=== PATIENT | male | born 1980 | race American Indian/Alaskan Native ===

== ENCOUNTER 2024-11-03 18:26 | Emergency (ER) | payer MEDICAID, SELFPAY ==
[2024-11-03 18:39] VITALS: BMI 35.2
[2024-11-03 18:42] VITALS: BP 126/90; PULSE 110; RESP 19; TEMP 37.3; O2SAT 98
--- NOTE | 2024-11-03 19:01 | EDNOTE_ITS ---
ED Medical Clearance RME/HPI General Chief complaint: Medical Clearance Stated complaint: MEDICAL CLEARANCE Time Seen by Provider: 11/03/24 19:00 Arrival date/time: 11/03/24 18:26 RME / HPI RME / HPI Narrative: 44-year-old male presents to the ED in police custody. Patient here for medical clearance because his blood pressure was high at prison intake. His blood pressure now is 126/90. He does not have any chest pain or headache. No complaints. Related Information Home Medications ?Medication ?Instructions ?Recorded ?Confirmed No Known Home Medications 04/26/2304/03 Allergies Allergy/AdvReac Type Severity Reaction Status Date / Time red dye Allergy Intermediate RASH Verified 04/26/23 22:38 Review of Systems Review of Systems Systems Reviewed: All systems reviewed, normal except as documented Past Medical History Past Medical History CARDIAC: Negative Congestive Heart Failure RESPIRATORY: Negative Chronic Obstructive Pulmonary Disease (COPD) GENITOURINARY: Negative Renal Disease ENDOCRINE: Negative Diabetes Mellitus Type 1 or Diabetes Mellitus Type 2 Social History SMOKING STATUS: Current every day smoker SUBSTANCE USE: does not use ALCOHOL: Current ED Exam Narrative Physical exam: Constitutional: no acute distress, age appropriate, non-toxic Eyes: PERRL, conjunctivae w/o pallor, EOMI HENT: normocephalic, atraumatic. Oral mucosa moist Respiratory Effort: no stridor, effort normal, no retractions Musculoskeletal: no deformities, no swelling, no LE edema Skin: warm, dry; No rash Neurology: alert, oriented X 4. Normal gait. Moves all extremities spontaneously. Psychology: cooperative, normal mood Course Quality Measures none Vital Signs Vital signs: Vital Signs Temperature 99.2 F 11/03/24 18:42 Pulse Rate 110 H 11/03/24 18:42 Respiratory Rate 19 11/03/24 18:42 Blood Pressure 126/90 H 11/03/24 18:42 Pulse Oximetry (%) 98 11/03/24 18:42 Oxygen Delivery Method Room Air 11/03/24 18:42 Medical Clearance MDM Narrative MDM Narrative:: Patient here for medical clearance. Apparently his blood pressure was high when he was getting checked into prison. His blood pressure is 126/90 and he does not have any complaints. No indication for ED workup today. Patient is ambulatory, and is alert and oriented. No complaints of chest pain or headache so do not suspect hypertensive emergency. Patient is stable for discharge to prison. Patient data External records reviewed:: [facility] previous records Clinical information provided by:: patient and law enforcement Social determinants that could affect healthcare access:: none Patient has the following chronic illnesses:: None How is presenting disease/condition affected by chronic disease/condition?: no chronic disease Evaluation data The following diagnostics were reviewed and interpreted by me:: other (specify) (N/A) Lab and/or radiology exams considered but not ordered:: None Interpretation Summary: N/A Medications / Prescriptions Medications or Prescriptions considered but not ordered:: N/A Medication administrations:: N/A Consultations Consultation(s) initiated? (list below): No Diagnosis Medical Clearance Differential Diagnosis: other (Hypertensive urgency, hypertensive emergency, medical clearance) Most likely diagnosis given after review of the tests above:: Medical clearance Admission Indicated Admission indicated?: not indicated Admission Request Was there a request for admission?: No Disposition Plan Disposition Plan: Discharge Discharge Attestation Discharge Attestation: The patient and all family members were given an opportunity to ask questions and understood the discharge instructions. Discharge instructions specifically effects, indications for sooner follow up or return to the emergency department, and the expected course of current diagnosis. Patient condition: Stable Discharge Plan Plan Patient Disposition: Alf/Court/Law Prescriptions/Referrals Prescriptions/Med Rec: No Action No Known Home Medications Problem List Clinical Impression: Medical clearance for incarceration Patient/Caregiver Discharge Instructions Additional Instructions: Follow-up with primary care as needed upon your release Print Language: Peruvian Stand Alone Forms: Gianna Award Info., Patient Portal Info Letter
== END 2024-11-03 19:14 ==
PROVIDERS: Emergency Provider Emergency Medicine
DX: Z02.89 Encounter for other administrative examinations (principal); R03.0 Elevated blood-pressure reading, without diagnosis of hypertension
CPT/HCPCS: 99281